=== PATIENT | male | born 1995 ===

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

== ENCOUNTER 2017-03-01 20:16 | Emergency (ER) | payer OTHER ==
[2017-03-01 20:22] VITALS: BP 153/86; PULSE 72; RESP 18; TEMP 98.5; O2SAT 100
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
== END 2017-03-01 23:40 | disposition home or self-care (01) ==
LOC: H.ER 20:16
DX: F31.9 Bipolar disorder, unspecified (principal); Z91.14 Patient's other noncompliance with medication regimen; F20.9 Schizophrenia, unspecified; F41.9 Anxiety disorder, unspecified

== ENCOUNTER 2017-04-30 02:35 | Observation (INO) | payer MEDICAID, OTHER ==
[2017-04-30 02:53] VITALS: BMI 33.3
[2017-04-30] MEDS ORDERED: Sodium Chloride 0.9% 1,000 ML IV STA ×2 (03:01→06:27)
[2017-04-30 03:50] LABS: BASO # 0.1 K/uL (0.0-0.2); BASO % 0.7 % (0.0-2.0); EOS # 0.2 K/uL (0.0-0.7); EOS % 1.9 % (0.0-4.0); HEMOGLOBIN 15.5 g/dL (12.0-18.0); LYMPH # 3.2 K/uL (1.0-4.3); LYMPH % 35.3 % (20.0-40.0); MEAN CELL VOLUME 80.6 fl (80.0-94.0); MEAN CORPUSCULAR HGB CONC 33.5 g/dL (33.0-37.0); MEAN PLATELET VOLUME 8.1 fl (7.2-11.7); MONO # 0.4 K/uL (0.0-0.8); MONO % 4.8 % (0.0-10.0); NEUT # 5.1 K/uL (1.8-7.0); NEUT % 57.3 % (50.0-75.0); NRBC % 0.1 % (0.0-0.0); RBC 5.73 Mil/uL (4.40-5.90); RED CELL DISTRIBUTION WIDTH 13.4 % (11.5-14.5); WHITE BLOOD COUNT 8.9 K/uL (4.8-10.8)
[2017-04-30 04:00] LABS: ALB/GLOB RATIO 1.2 (1.0-2.1); ALBUMIN 4.7 g/dL (3.5-5.0); ALT/SGPT 46 U/L (21-72); AST/SGOT 32 U/L (17-59); BLOOD UREA NITROGEN 12 mg/dl (9-20); CALCIUM 9.7 mg/dL (8.4-10.2); GFR AFRICAN-AMERICAN > 60; GFR NON-AFRICAN AMERICAN > 60
[2017-04-30 04:01] LABS: ACETAMINOPHEN < 10.0 ug/ml (10.0-30.0); SALICYLATE < 1.0 mg/dl
[2017-04-30 04:22] LABS: URINE BILIRUBIN NEGATIVE (NEGATIVE); URINE BLOOD NEGATIVE (NEGATIVE); URINE CLARITY SLIGHTY-CLOUDY (Clear); URINE COLOR YELLOW (YELLOW); URINE GLUCOSE (UA) NEG (Normal); URINE LEUKOCYTE ESTERASE NEG Leu/uL (Negative); URINE PROTEIN NEGATIVE (NEGATIVE); URINE UROBILINOGEN 0.2-1.0 mg/dL (0.2-1.0)
[2017-04-30 04:26] LABS: VENOUS BLOOD GAS BASE EXCESS -1.1 mmol/L (0.0-2.0); VENOUS BLOOD GAS PCO2 42 mmHg (40-60); VENOUS BLOOD GAS PO2 72 mm/Hg (30-55); VENOUS BLOOD PH 7.37 (7.32-7.43)
[2017-04-30 04:26] LABS: BARBITURATES, UR NEGATIVE (NEGATIVE); BENZODIAZEPINES, UR NEGATIVE (NEGATIVE); OPIATES, UR NEGATIVE (NEGATIVE); PHENCYCLIDINE, UR NEGATIVE (NEGATIVE)
--- NOTE | 2017-04-30 04:32 | ED PDOC ---
HPI: Psych/Substance Abuse Time Seen by Provider: 04/30/17 02:47 Chief Complaint (Nursing): Psychiatric Evaluation Chief Complaint (Provider): psychiatric evaluation History Per: Patient Onset/Duration Of Symptoms: Hrs (two hours prior to arrival ) Current Symptoms Are (Timing): Still Present Associated Symptoms: denies: Suicidal Thoughts Additional Complaint(s): 21 year old male with a past medical history of bipolar disorder presents for psychiatric evaluation. Patient took approximately 10 to 15 Depakote 500 mg pills two hours prior to arrival in order to "get high". Currently feels dizzy, nauseated, numb throughout his body, and has an headache. Denies suicidal or homicidal ideation, alcohol or drug use. PMD: Provider TBD Past Medical History Reviewed: Historical Data, Nursing Documentation, Vital Signs Vital Signs: Last Vital Signs Temp 98.7 F 04/30/17 02:53 Pulse 118 H 04/30/17 02:53 Resp 16 04/30/17 02:53 BP 142/90 04/30/17 02:53 Pulse Ox 100 04/30/17 02:53 - Medical History PMH: Anxiety, Bipolar Disorder, Depression, Schizophrenia Denies: Diabetes, Hepatitis, HIV, HTN, Chronic Kidney Disease, Seizures, Sexually Transmitted Disease - Family History Family History: States: Unknown Family Hx - Home Medications Home Medications: Ambulatory Orders Medication Instructions Recorded ARIPiprazole [Abilify] 5 mg PO DAILY #15 tab 03/01/17 Divalproex [Depakote DR] 500 mg PO BID 04/30/17 - Allergies Allergies/Adverse Reactions: Allergies Allergy/AdvReac Type Severity Reaction Status Date / Time No Known Allergies Allergy Verified 04/30/17 02:52 Review of Systems ROS Statement: Except As Marked, All Systems Reviewed And Found Negative Musculoskeletal: Positive for: Other (numb throughout the body) Neurological: Positive for: Headache, Dizziness, Other (nauseated) Psych: Negative for: Suicidal ideation (homicidal ideation) Physical Exam - Reviewed Nursing Documentation Reviewed: Yes Vital Signs Reviewed: Yes - Physical Exam Appears: Positive for: Well, Non-toxic, No Acute Distress Head Exam: Positive for: ATRAUMATIC, NORMAL INSPECTION, NORMOCEPHALIC Skin: Positive for: Normal Color, Warm, Dry Eye Exam: Positive for: EOMI, Normal appearance, PERRL ENT: Positive for: Normal ENT Inspection Neck: Positive for: Normal, Painless ROM, Supple. Negative for: Decreased ROM, Limited ROM Cardiovascular/Chest: Positive for: Regular Rate, Rhythm. Negative for: Murmur Respiratory: Positive for: Normal Breath Sounds. Negative for: Decreased Breath Sounds, Accessory Muscle Use, Respiratory Distress Gastrointestinal/Abdominal: Positive for: Normal Exam, Bowel Sounds, Soft. Negative for: Tenderness, Guarding, Rebound Back: Positive for: Normal Inspection. Negative for: L CVA Tenderness, R CVA Tenderness Extremity: Positive for: Normal ROM. Negative for: Tenderness, Pedal Edema, Deformity Neurologic/Psych: Positive for: Alert, civil structural engineer II-XII, Oriented (x3), Cerebellar Tests (normal), Gait (normal). Negative for: Motor/Sensory Deficits, Aphasia - Laboratory Results Result Diagrams: 04/30/17 03:47 04/30/17 03:47 - ECG O2 Sat by Pulse Oximetry: 100 (RA) Pulse Ox Interpretation: Normal Medical Decision Making Medical Decision Making: Time: 02:56 Impression: History of bipolar disorder presents to ED with drug overdose A/P: Questionable if patient is suicidal or not and patient is placed on 1:1 observation --VBG Shock Panel --EKG --Acetaminophen Stat --Alcohol Serum --CMP --Drug Screen --Salicylate --Valproic Acid --CBC w/ differential --Motrin 600 mg --Normal Saline 1,000 mls/hr --Zofran Inj 4 mg --1:1 Observation --Urinalysis --Reevaluation 0600 Spoke with Poison control who recommends observation for seizure activity, [employer] depression, encephalopathy, thrombocytopenia, recommends observation for 12-24 hours. Patient improving, states he's starting to feel better. Spoke with Hospitalist who is aware of patient in case of decompensation on Tele unit. Dr. Corbin aware of patient and agrees to admission. Scribe Attestation: Documented by Mathieu Davila, acting as a scribe for Damian Wilkins MD Provider Scribe Attestation: All medical record entries made by the Scribe were at my direction and personally dictated by me. I have reviewed the chart and agree that the record accurately reflects my personal performance of the history, physical exam, medical decision making, and the department course for this patient. I have also personally directed, reviewed, and agree with the discharge instructions and disposition. Disposition - Clinical Impression Clinical Impression: Bipolar disorder, Valproic acid toxicity - Disposition Disposition Time: 05:00 Condition: SERIOUS Forms: [employer] ([place])
[2017-04-30 05:28] LABS: VALPROIC ACID 322.9 ug/mL (50.0-100.0)
--- NOTE | 2017-04-30 11:57 | CARD ---
APPROVED REPORT EKG Measurement Heart [id number] <Conclusion> Sinus tachycardia Otherwise normal ECG
--- NOTE | 2017-04-30 12:00 | CARD ---
APPROVED REPORT EKG Measurement Heart [id number] <Conclusion> Sinus bradycardia Otherwise normal ECG
--- NOTE | 2017-04-30 14:28 | CP.PCM.CON ---
History of Present Illness - History of Present Illness History of Present Illness: consult requested for overdose on depakote pt is a 21 years old male with previous diagnosis of polysubstance use and bipolar disorder, pt non ccompliant with medication or follow up, as per pt he has been using cannabis daily and alcohol occasionally, pt reported he has been depressed and bored, as per mother pt has been aggressive and threatening towards family constantly requesting money on day of evaluation he requested money from mother when she refused , he overdosed on depakote pt on evaluation reported depressed mood, guarded , minimizing the suicidal attempt reported using depakote to get high Past Patient History - Past Medical History & Family History Past Medical History?: Yes - Past Social History Smoking Status: Light Smoker < 10 Cigarettes Daily - CARDIAC Hx Cardiac Disorders: No - PULMONARY Hx Respiratory Disorders: No - NEUROLOGICAL Hx Neurological Disorder: No - HEENT Hx HEENT Problems: Yes Other/Comment: wears eye glasses - RENAL Hx Chronic Kidney Disease: No - ENDOCRINE/METABOLIC Hx Endocrine Disorders: No - HEMATOLOGICAL/ONCOLOGICAL Hx Blood Disorders: No - INTEGUMENTARY Hx Dermatological Problems: No - MUSCULOSKELETAL/RHEUMATOLOGICAL Hx Musculoskeletal Disorders: No Hx Falls: No - GASTROINTESTINAL Hx Gastrointestinal Disorders: No - GENITOURINARY/GYNECOLOGICAL Hx Genitourinary Disorders: No Hx Sexually Transmitted Disorders: No - PSYCHIATRIC Hx Psychophysiologic Disorder: Yes Hx Bipolar Disorder: Yes Hx Depression: Yes Hx Schizophrenia: Yes Hx Substance Use: Yes (pt denies but + for Cannabinoids) - SURGICAL HISTORY Hx Surgeries: No - ANESTHESIA Hx Anesthesia: No Hx Anesthesia Reactions: (unknown) Meds Allergies/Adverse Reactions: Allergies Allergy/AdvReac Type Severity Reaction Status Date / Time No Known Allergies Allergy Verified 04/30/17 02:52 Physical Exam - Psychiatric Exam Additional comments: pt seen in bed, , partial eye contact, guarded speech underproductive reported depressed mood, constricted affect, thought form circumstantial , denied perceptual disturbances non elicited denied any current suicidal or homicidal ideations, AAOX3 limited insight into illness Results - Vital Signs Recent Vital Signs: Last Vital Signs Temp 97.5 F L 04/30/17 12:00 Pulse 54 L 04/30/17 12:00 Resp 18 04/30/17 12:00 BP 100/51 L 04/30/17 12:00 Pulse Ox 100 04/30/17 12:00 - Labs Result Diagrams: 04/30/17 03:47 04/30/17 03:47 Labs: Laboratory Results - last 24 hr 04/30/17 04/30/17 04/30/17 03:47 03:47 03:47 WBC 8.9 RBC 5.73 Hgb 15.5 Hct 46.2 MCV 80.6 MCH 27.0 MCHC 33.5 RDW 13.4 Plt Count 289 MPV 8.1 Neut % (Auto) 57.3 Lymph % (Auto) 35.3 [place] % (Auto) 4.8 Eos % (Auto) 1.9 Baso % (Auto) 0.7 Neut # (Auto) 5.1 Lymph # (Auto) 3.2 [place] # (Auto) 0.4 Eos # (Auto) 0.2 Baso # (Auto) 0.1 pO2 VBG pH VBG pCO2 VBG HCO3 VBG Total CO2 VBG O2 Sat (Calc) VBG Base Excess VBG Potassium Glucose Lactate FiO2 Sodium 145 Potassium 4.1 Chloride 101 Carbon Dioxide 24 Anion Gap 24 H BUN 12 Creatinine 1.1 Est GFR ( Amer) > 60 Est GFR (Non-Af Amer) > 60 Random Glucose 76 Calcium 9.7 Total Bilirubin 0.5 AST 32 ALT 46 Alkaline Phosphatase 83 Ammonia Troponin I Total Protein 8.5 H Albumin 4.7 Globulin 3.8 Albumin/Globulin Ratio 1.2 Venous Blood Potassium Urine Color Urine Clarity Urine pH Ur Specific [place] Urine Protein Urine Glucose (UA) Urine Ketones Urine Blood Urine Nitrate Urine Bilirubin Urine Urobilinogen Ur Leukocyte Esterase Urine RBC (Auto) Urine Microscopic WBC Salicylates < 1.0 Urine Opiates Screen Urine Methadone Screen Acetaminophen < 10.0 L Ur Barbiturates Screen Valproic Acid 322.9 H* Ur Phencyclidine Scrn Ur Amphetamines Screen U Benzodiazepines Scrn U Oth Cocaine Metabols U Cannabinoids Screen Alcohol, Quantitative < 10 04/30/17 04/30/17 04/30/17 04:03 04:03 04:22 WBC RBC Hgb Hct MCV MCH MCHC RDW Plt Count MPV Neut % (Auto) Lymph % (Auto) [place] % (Auto) Eos % (Auto) Baso % (Auto) Neut # (Auto) Lymph # (Auto) [place] # (Auto) Eos # (Auto) Baso # (Auto) pO2 72 H VBG pH 7.37 VBG pCO2 42 VBG HCO3 24.0 VBG Total CO2 25.6 VBG O2 Sat (Calc) 98.5 H VBG Base Excess -1.1 L VBG Potassium 4.0 Glucose 73 L Lactate 2.1 FiO2 21.0 Sodium 138.0 Potassium Chloride 107.0 Carbon Dioxide Anion Gap BUN Creatinine Est GFR ( Amer) Est GFR (Non-Af Amer) Random Glucose Calcium Total Bilirubin AST ALT Alkaline Phosphatase Ammonia Troponin I Total Protein Albumin Globulin Albumin/Globulin Ratio Venous Blood Potassium 4.0 Urine Color Yellow Urine Clarity Slighty-cloudy Urine pH 6.0 Ur Specific [place] 1.012 Urine Protein Negative Urine Glucose (UA) Neg Urine Ketones Negative Urine Blood Negative Urine Nitrate Negative Urine Bilirubin Negative Urine Urobilinogen 0.2-1.0 Ur Leukocyte Esterase Neg Urine RBC (Auto) 3 Urine Microscopic WBC < 1 Salicylates Urine Opiates Screen Negative Urine Methadone Screen Negative Acetaminophen Ur Barbiturates Screen Negative Valproic Acid Ur Phencyclidine Scrn Negative Ur Amphetamines Screen Negative U Benzodiazepines Scrn Negative U Oth Cocaine Metabols Negative U Cannabinoids Screen Positive H Alcohol, Quantitative 04/30/17 04/30/17 04/30/17 06:04 12:03 12:03 WBC RBC Hgb Hct MCV MCH MCHC RDW Plt Count MPV Neut % (Auto) Lymph % (Auto) [place] % (Auto) Eos % (Auto) Baso % (Auto) Neut # (Auto) Lymph # (Auto) [place] # (Auto) Eos # (Auto) Baso # (Auto) pO2 VBG pH VBG pCO2 VBG HCO3 VBG Total CO2 VBG O2 Sat (Calc) VBG Base Excess VBG Potassium Glucose Lactate FiO2 Sodium Potassium Chloride Carbon Dioxide Anion Gap BUN Creatinine Est GFR ( Amer) Est GFR (Non-Af Amer) Random Glucose Calcium Total Bilirubin AST ALT Alkaline Phosphatase Ammonia 36 Troponin I < 0.0120 Total Protein Albumin Globulin Albumin/Globulin Ratio Venous Blood Potassium Urine Color Urine Clarity Urine pH Ur Specific [place] Urine Protein Urine Glucose (UA) Urine Ketones Urine Blood Urine Nitrate Urine Bilirubin Urine Urobilinogen Ur Leukocyte Esterase Urine RBC (Auto) Urine Microscopic WBC Salicylates Urine Opiates Screen Urine Methadone Screen Acetaminophen Ur Barbiturates Screen Valproic Acid 67.0 Ur Phencyclidine Scrn Ur Amphetamines Screen U Benzodiazepines Scrn U Oth Cocaine Metabols U Cannabinoids Screen Alcohol, Quantitative Assessment & Plan - Assessment and Plan (Free Text) Assessment: bipolar disorder depressed cannabis use disorder Plan: pt with limited insight into illness pt at current mental status continues to be danger to self, requires admission to psychiatry for further stabilization pt agreed to sign voluntary to psychiatry department for further stabilization upon medical clearence
--- NOTE | 2017-04-30 15:29 | CP.PCM.HP ---
History of Present Illness - History of Present Illness History of Present Illness: CC: Overdose of Depakote. 21 y/o, M, Hx of Bipolar Disorder, brought by EMS to [facility] to be evaluated for Depakote Overdose, onset 2 hrs [facility], with no relief. Pt came to ER c/o of been taking from 10 to 15 pills of Depakote, episode of intoxication associated with depression. As per mother, he was asking for money and when she refused, he start with aggressive behavior with the family, there after, he took an excessive amount of the pills. Pt MIK hong SI. Worsening symptoms: Headache, continue, moderate intensity 7:1Dizziness, nausea , generalized feeling of numbness. Aggravated factor: Non in compliance with medications. Pt denied: Fever, chills, CP, SOB, abdominal pain, vomiting, diarrhea, urinary symptoms, sick contact, recent travel out of [facility]. 1st EKG: Sinus Bradycardia (HR 54) 2nd EKG: Sinus Tachycardia (HR 118). Present on Admission - Present on Admission Any Indicators Present on Admission: No Review of Systems - Constitutional Constitutional: Headache - EENT Eyes: Requires Corrective Lenses Ears: Other (negative) Nose/Mouth/Throat: Other (negative) - Cardiovascular Cardiovascular: Other (negative) - Respiratory Respiratory: Other (negative) - Gastrointestinal Gastrointestinal: Nausea - Genitourinary Genitourinary: Other (negative) - Musculoskeletal Musculoskeletal: Other (negative) - Integumentary Integumentary: Other (negative) - Neurological Neurological: Dizziness, Headaches, Other (feeling of generalized numbness.) - Psychiatric Psychiatric: Anxiety, Behavioral Changes (2nd to intoxication.), Depression - Endocrine Endocrine: Other (negative) - Hematologic/Lymphatic Hematologic: Other (negative) Past Patient History - Past Medical History & Family History Past Medical History?: Yes Pertinent Family History: Unknown - Past Social History Smoking Status: Light Smoker < 10 Cigarettes Daily Alcohol: Occasional Drugs: Cannabis Home Situation {Lives}: With Family - CARDIAC Hx Cardiac Disorders: No - PULMONARY Hx Respiratory Disorders: No - NEUROLOGICAL Hx Neurological Disorder: No - HEENT Hx HEENT Problems: Yes Other/Comment: wears eye glasses - RENAL Hx Chronic Kidney Disease: No - ENDOCRINE/METABOLIC Hx Endocrine Disorders: No - HEMATOLOGICAL/ONCOLOGICAL Hx Blood Disorders: No - INTEGUMENTARY Hx Dermatological Problems: No - MUSCULOSKELETAL/RHEUMATOLOGICAL Hx Musculoskeletal Disorders: No Hx Falls: No - GASTROINTESTINAL Hx Gastrointestinal Disorders: No - GENITOURINARY/GYNECOLOGICAL Hx Genitourinary Disorders: No Hx Sexually Transmitted Disorders: No - PSYCHIATRIC Hx Psychophysiologic Disorder: Yes Hx Bipolar Disorder: Yes Hx Depression: Yes Hx Schizophrenia: Yes Hx Substance Use: Yes (pt denies but + for Cannabinoids) - SURGICAL HISTORY Hx Surgeries: No - ANESTHESIA Hx Anesthesia: No Hx Anesthesia Reactions: (unknown) Meds Allergies/Adverse Reactions: Allergies Allergy/AdvReac Type Severity Reaction Status Date / Time No Known Allergies Allergy Verified 04/30/17 02:52 Physical Exam - Constitutional Appears: No Acute Distress - Head Exam Head Exam: NORMAL INSPECTION - Eye Exam Eye Exam: PERRL - ENT Exam ENT Exam: Normal Exam - Neck Exam Neck exam: Positive for: Normal Inspection - Respiratory Exam Respiratory Exam: NORMAL BREATHING PATTERN - Cardiovascular Exam Cardiovascular Exam: REGULAR RHYTHM - GI/Abdominal Exam GI & Abdominal Exam: Normal Bowel Sounds, Soft - Extremities Exam Extremities exam: Positive for: normal inspection - Back Exam Back exam: NORMAL INSPECTION - Neurological Exam Neurological exam: Alert, Oriented x3 Additional comments: Speech clear, follows commands - Psychiatric Exam Psychiatric exam: Depressed - Skin Skin Exam: Warm Results - Vital Signs Recent Vital Signs: Last Vital Signs Temp 97.5 F L 04/30/17 12:00 Pulse 54 L 04/30/17 12:00 Resp 18 04/30/17 12:00 BP 100/51 L 04/30/17 12:00 Pulse Ox 100 04/30/17 12:00 reviewed Gideon - Labs Result Diagrams: 04/30/17 03:47 04/30/17 03:47 Labs: Laboratory Results - last 24 hr 04/30/17 04/30/17 04/30/17 03:47 03:47 03:47 WBC 8.9 RBC 5.73 Hgb 15.5 Hct 46.2 MCV 80.6 MCH 27.0 MCHC 33.5 RDW 13.4 Plt Count 289 MPV 8.1 Neut % (Auto) 57.3 Lymph % (Auto) 35.3 [place] % (Auto) 4.8 Eos % (Auto) 1.9 Baso % (Auto) 0.7 Neut # (Auto) 5.1 Lymph # (Auto) 3.2 [place] # (Auto) 0.4 Eos # (Auto) 0.2 Baso # (Auto) 0.1 pO2 VBG pH VBG pCO2 VBG HCO3 VBG Total CO2 VBG O2 Sat (Calc) VBG Base Excess VBG Potassium Glucose Lactate FiO2 Sodium 145 Potassium 4.1 Chloride 101 Carbon Dioxide 24 Anion Gap 24 H BUN 12 Creatinine 1.1 Est GFR ( Amer) > 60 Est GFR (Non-Af Amer) > 60 Random Glucose 76 Calcium 9.7 Total Bilirubin 0.5 AST 32 ALT 46 Alkaline Phosphatase 83 Ammonia Troponin I Total Protein 8.5 H Albumin 4.7 Globulin 3.8 Albumin/Globulin Ratio 1.2 Venous Blood Potassium Urine Color Urine Clarity Urine pH Ur Specific [place] Urine Protein Urine Glucose (UA) Urine Ketones Urine Blood Urine Nitrate Urine Bilirubin Urine Urobilinogen Ur Leukocyte Esterase Urine RBC (Auto) Urine Microscopic WBC Salicylates < 1.0 Urine Opiates Screen Urine Methadone Screen Acetaminophen < 10.0 L Ur Barbiturates Screen Valproic Acid 322.9 H* Ur Phencyclidine Scrn Ur Amphetamines Screen U Benzodiazepines Scrn U Oth Cocaine Metabols U Cannabinoids Screen Alcohol, Quantitative < 10 04/30/17 04/30/17 04/30/17 04:03 04:03 04:22 WBC RBC Hgb Hct MCV MCH MCHC RDW Plt Count MPV Neut % (Auto) Lymph % (Auto) [place] % (Auto) Eos % (Auto) Baso % (Auto) Neut # (Auto) Lymph # (Auto) [place] # (Auto) Eos # (Auto) Baso # (Auto) pO2 72 H VBG pH 7.37 VBG pCO2 42 VBG HCO3 24.0 VBG Total CO2 25.6 VBG O2 Sat (Calc) 98.5 H VBG Base Excess -1.1 L VBG Potassium 4.0 Glucose 73 L Lactate 2.1 FiO2 21.0 Sodium 138.0 Potassium Chloride 107.0 Carbon Dioxide Anion Gap BUN Creatinine Est GFR ( Amer) Est GFR (Non-Af Amer) Random Glucose Calcium Total Bilirubin AST ALT Alkaline Phosphatase Ammonia Troponin I Total Protein Albumin Globulin Albumin/Globulin Ratio Venous Blood Potassium 4.0 Urine Color Yellow Urine Clarity Slighty-cloudy Urine pH 6.0 Ur Specific [place] 1.012 Urine Protein Negative Urine Glucose (UA) Neg Urine Ketones Negative Urine Blood Negative Urine Nitrate Negative Urine Bilirubin Negative Urine Urobilinogen 0.2-1.0 Ur Leukocyte Esterase Neg Urine RBC (Auto) 3 Urine Microscopic WBC < 1 Salicylates Urine Opiates Screen Negative Urine Methadone Screen Negative Acetaminophen Ur Barbiturates Screen Negative Valproic Acid Ur Phencyclidine Scrn Negative Ur Amphetamines Screen Negative U Benzodiazepines Scrn Negative U Oth Cocaine Metabols Negative U Cannabinoids Screen Positive H Alcohol, Quantitative 04/30/17 04/30/17 04/30/17 06:04 12:03 12:03 WBC RBC Hgb Hct MCV MCH MCHC RDW Plt Count MPV Neut % (Auto) Lymph % (Auto) [place] % (Auto) Eos % (Auto) Baso % (Auto) Neut # (Auto) Lymph # (Auto) [place] # (Auto) Eos # (Auto) Baso # (Auto) pO2 VBG pH VBG pCO2 VBG HCO3 VBG Total CO2 VBG O2 Sat (Calc) VBG Base Excess VBG Potassium Glucose Lactate FiO2 Sodium Potassium Chloride Carbon Dioxide Anion Gap BUN Creatinine Est GFR ( Amer) Est GFR (Non-Af Amer) Random Glucose Calcium Total Bilirubin AST ALT Alkaline Phosphatase Ammonia 36 Troponin I < 0.0120 Total Protein Albumin Globulin Albumin/Globulin Ratio Venous Blood Potassium Urine Color Urine Clarity Urine pH Ur Specific [place] Urine Protein Urine Glucose (UA) Urine Ketones Urine Blood Urine Nitrate Urine Bilirubin Urine Urobilinogen Ur Leukocyte Esterase Urine RBC (Auto) Urine Microscopic WBC Salicylates Urine Opiates Screen Urine Methadone Screen Acetaminophen Ur Barbiturates Screen Valproic Acid 67.0 Ur Phencyclidine Scrn Ur Amphetamines Screen U Benzodiazepines Scrn U Oth Cocaine Metabols U Cannabinoids Screen Alcohol, Quantitative reviewed J.P. - EKG Data EKG comments: reviewed J.P. Assessment & Plan (1) Bipolar disorder Status: Acute Priority: High (2) Valproic acid toxicity Status: Acute Priority: High (3) Depression Status: Acute Priority: High - Assessment and Plan (Free Text) Plan: Pt was seen by Psychiatrist configuration management consultant and agree to sign for voluntary to Psychiatric Unit upon medically stable, Pt condition improved and can be transferred to 3rd floor. Psychiatric consult appreciated. - Date & Time Date: 04/30/17 Time: 13:00
[2017-04-30 16:22] VITALS: RESP 20
[2017-04-30 20:17] VITALS: BP 135/75; PULSE 65; TEMP 98.9; O2SAT 97
== END 2017-04-30 22:30 ==
LOC: H.ER 02:35 → H.ERHOLD 05:04 → H.TEL 08:59
PROVIDERS: ADMIT Internal Medicine Pulmonary Disease; ATTEND Internal Medicine Pulmonary Disease
DX: T42.6X2A Poisoning by other antiepileptic and sedative-hypnotic drugs, intentional self-harm, initial encounter (principal); Y92.9 Unspecified place or not applicable; Z79.899 Other long term (current) drug therapy; Z87.891 Personal history of nicotine dependence; F41.9 Anxiety disorder, unspecified; F45.9 Somatoform disorder, unspecified; R00.0 Tachycardia, unspecified; R00.1 Bradycardia, unspecified; F12.90 Cannabis use, unspecified, uncomplicated; F20.9 Schizophrenia, unspecified; F31.9 Bipolar disorder, unspecified; Z91.14 Patient's other noncompliance with medication regimen
CPT/HCPCS: 80053; 80164; 80320; 80324; 80329; 80345; 80346; 80349; 80353; 80358; 80361; 81003; 82140; 82803; 83992; 84484; 85025; 93005; 96361; 96374; 99285; G0378; J2405; J7040

== ENCOUNTER 2017-04-30 15:52 | Inpatient (IN) | payer MEDICAID ==
[2017-04-30 22:40] VITALS: BMI 33.4
[2017-04-30] MEDS ORDERED: Alum-Mag Hydrox-Simethicone Susp (30 mL) PO PRN (23:00)
[2017-04-30] MEDS ORDERED: Magnesium Hydroxide Susp 30 ml UD PO PRN (23:00)
[2017-04-30] MEDS ORDERED: DiphenhydrAMINE 50 mg/ml Inj IM PRN (23:00)
--- NOTE | 2017-04-30 23:39 | PCM.BM ---
<Matt Blackmon - Last Filed: 04/30/17 23:37> Treatment Plan Problems - Problems identified on initial assessmt aletered sleep pattern Date Initiated: 04/30/17 (n) Time Initiated: 23:38 Assessment reference: NA Status: Active Hopelessness Date Initiated: 04/30/17 Time Initiated: 23:38 Assessment reference: NA medication non-adherence Date Initiated: 04/30/17 Time Initiated: 23:39 Assessment reference: NA Treatment assets and liabiliti Patient Assests: cooperative, self-reliant, ADL independent, physically healthy , good support system, negotiates basic needs Patient Liabilities: financial problems, substance abuse - Milieu Protocol Maintain good personal hygiene: daily Encourage regular showers, daily Remind patient to perform daily oral care, daily Assist patient to perform ADL's Maintain personal safety: every shift Educate patient to report safety concerns to staff, every shift Monitor environment for contraband/sharps Medication safety: Monitor for expected outcome, potential side effects: every shift, Assess barriers to learning: every shift, Assess readiness for medication education: every shift Family Contact Family contact: Patient agrees to contact <Ramesh Murillo - Last Filed: 05/02/17 13:13> Family Contact Family involvement: Family/SO is involved Family contact: Patient agrees to contact, Family has been contacted by patient , Telephone contact initiated by staff Family contact name: Leticia Vernon (Mother) [phone] Family contacted how many times per week?: 4 Family contact comment: Business Intelligence Engineer met with pt's mother who reported that pt can be very volitile and has been violent toward property in the home when he does not get his way. pt's mother says that pt does not follow-up with services because he does not want to go. Leticia reported that pt is unmotivated and stays at home in his room all day. She is not concerned with his drug usage at this time. Leticia reported pt began attending college, that she was paying for, for 2 months and then stopped attending. Leticia would like pt to begin therapy to help him make a plan for him life and gain direction, motivation and coping skills. <Fany Arana - Last Filed: 05/03/17 15:05> Family Contact - Goals for Treatment Patient goals for treatment: Patient to continue stabilization on 3NP through medication management and group/supportive therapy. Patient to be encouraged to attend groups regularly to promote self-awareness, sobriety, and improve insight , coping skills and self-esteem. Patient to be provided with referral for appropriate level of aftercare to reduce risk of future hospitalizations and ensure safety in the community. Discharge/Continuing Care - Education Needs Education Needs: Patient Medication, Patient Coping Skills, Patient Anger Management skills, Patient Community resources, Patient Aftercare Safety Plan - Discharge Discharge Criteria: Tolerates medication w/o severe side effects, Free of Suicidal thoughts, Free of agitation, Normal sleep pattern, Ability to care for self, No longer exhibiting s/s of withdrawal, Reduction of target symptoms Discharge to:: Home, With Family - Treatment Team Participation Patient/Family/SO Statement: 05/03/17 15:05 Patient attended tx team this morning to discuss progress on 3NP and discharge planning. Patient presents as depressed and withdrawn. Pt. continues to deny overdose leading to admission as a suicide attempt, stating It was to get high . Pt. also reports overdose was an impulsive reaction to mother refusing to give patient money. Pt. reported non-adherence with medication management [place] [facility] (Dep[place]). Medication changes discussed at length. Pt. agreeable to Abilify. Psychoeducation regarding importance of compliance with aftercare and risks of continued marijuana abuse provided. Pt. receptive and expressed being motivated for tx. Discussed with Family/SO: No Was Patient/Family/SO present at Treatment Team Meeting: Yes <Mayco Miller - Last Filed: 05/05/17 10:56> - Diagnosis (1) Bipolar disorder Status: Acute Interventions: psychotherapy, pharmacotherapy 05/05/17 09:02
--- NOTE | 2017-05-01 08:22 | PCM.PSYCH ---
Initial Psychiatric Evaluation - Initial Psychiatric Evaluation Type of Admission: Voluntary Chief Complaint (in patient's own words): i overdosed Patient's Reaction to Hospitalization: i wanted to get high on depakote History of Present Illness and Precipitating Events: This is a 21 year old male with h/o bipolar disorder and with 2 previous admissions to [facility] and last one last year and has been noncompliant with meds admitted as a transfer from as pt overdosed on 11-29 depakote in a possible suicidal attempt.pt lives with mother and claims that he took pills to get high and has not seen psychiatrist for past year. pt says that he feels lonely and pt has few friends Current Medications: Active Medications Generic Name Dose Route Start Last Admin Trade Name Freq PRN Reason Stop Dose Admin Acetaminophen 650 mg 04/30/17 23:00 Tylenol 325mg Tab PO Q4 PRN T>101;Pain 1-7;headache Al Hydrox/Mg Hydrox/Simethicone 30 ml 04/30/17 23:00 Maalox Plus 30 Ml PO Q4 PRN Dyspepsia Diphenhydramine HCl 50 mg 04/30/17 23:00 Benadryl PO Q6 PRN Extrapyramidal Symptoms Diphenhydramine HCl 50 mg 04/30/17 23:00 Benadryl IM Q6 PRN Extrapyramidal S/S Unable PO Diphenhydramine HCl 50 mg 04/30/17 23:10 04/30/17 23:35 Benadryl PO 50 mg HS PRN Administration Sleep Haloperidol 5 mg 04/30/17 23:00 Haldol PO Q4 PRN Agitation Haloperidol Lactate 5 mg 04/30/17 23:00 Haldol IM Q4 PRN Agitation, Unable to Take PO Lorazepam 2 mg 04/30/17 23:00 Ativan IM Q4 PRN Anxiety/Agitation,Unable PO Lorazepam 2 mg 04/30/17 23:00 Ativan PO Q4 PRN Anxiety/Agitation Magnesium Hydroxide 30 ml 04/30/17 23:00 Milk Of Magnesia PO HS PRN Constipation Past Psychiatric History - Past Psychiatric History At [facility]: [facility] Nature of Treatment: for depression History of Abuse: denies History of ETOH/Drug Use: pt abuses cannabis daily. History of Family Illness: not known Pertinent Medical Hx (Current Medical&Sleep Prob, Allergies): Allergies Allergy/AdvReac Type Severity Reaction Status Date / Time No Known Allergies Allergy Verified 04/30/17 02:52 ARIPiprazole [Abilify] 5 mg PO DAILY #15 tab 03/01/17 Divalproex [Depakote DR] 500 mg PO BID 04/30/17 Review of Systems - Review of Systems All systems: reviewed and no additional remarkable complaints except Mental Status Examination - Personal Presentation Personal Presentation: Looks stated age - Affect Affect: Constricted - Motor Activity Motor Activity: Calm - Reliability in Providing Information Reliability in Providing Information: Fair - Speech Speech: Relevant - Mood Mood: Depressed - Formal Thought Process Formal Thought Process: Paranoia - Obsessions/Compulsions Obsessions: No Compulsions: No - Cognitive Functions Orientation: Person, Place, Situation Sensorium: Alert Attention/Concentration: Easily distracted Abstract Thinking: As evidence by literal perception of proverbs Estimate of Intelligence: Average Memory: Remote intact, as evidenced by: Ability to recall historical events - Risk Risk: Diminished functioning - Strength & Assets Inventory Strength & Assets Inventory: Family support DSM 5 DX - DSM 5 DSM 5 Diagnosis: bipolar disorder,mixed type without psychosis - Recommended/Plan of Treatment Treatment Recommendations and Plan of Treatment: plan is to start pt on abilify 5 mg daily and check Valproic acid level in am and restart depakote based on the level. Will engage pt in groups and therapy Medical consult .
[2017-05-01 10:38] LABS: T4 4.3 ug/dl (5.5-11.0)
[2017-05-01 10:51] LABS: T3 0.814 nmol/L (1.49-2.60)
--- NOTE | 2017-05-02 16:02 | PCM.PYCHPN ---
Psychiatric Progress Note - Psychiatric Progress Note Patient Chief Complaint: pt has remained very labile and irritible with poor impulse control and need further stabilization.VPA level is 10 and low Medication Change: Yes Medical Record Reviewed: Yes Mental Status Examination - Cognitive Function Memory: Intact Attention: Poor Concentration: Poor - Mood Mood: Anxious - Affect Affect: Constricted Goal/Treatment Plan - Goal/Treatment Plan Progress Toward Problem(s) and Goals/Treatment Plan: plan is to start pt on abilify 5 mg daily and check Valproic acid level in am and restart depakote based on the level. will start depakote 500 mg bid today.
[2017-05-02] MEDS: Divalproex 500 mg DR(BID formulation) PO SCH (18:06)
[2017-05-03] MEDS: Divalproex 500 mg DR(BID formulation) PO SCH (08:34)
--- NOTE | 2017-05-03 16:03 | PCM.PYCHPN ---
Psychiatric Progress Note - Psychiatric Progress Note Patient seen today, length of contact: pt evaluated discussed with team chart reviewed Patient Chief Complaint: I do not want to take depakote, it makes my hair fall Problems Identified/Issues Discussed: pt evaluated with treatment team, guarded, underproductive speech , limited insight into illness , initially denied suicidal attempt also guarded in reference to information regarding substance use discussed with pt lack of previous compliance with medications pt stated side effects of depakote with hair falling, agreed to be started on abilify with possible change to depot injection to ensure compliance, pt agreed pt denied any current suicidal or homicidal ideations, attending groups, agreed to join partial program on discharge DSM 5 Symptoms Update: cannabis use disorder bipoalr disorder mixed Medication Change: Yes (increase abilify d/c depakote) Medical Record Reviewed: Yes Mental Status Examination - Cognitive Function Orientation: Person, Place, Situation Memory: Intact Attention: WNL Concentration: WNL Association: WNL Fund of Knowledge: WNL Decription of patient's judgement and insights: poor insight and judgement - Mood Mood: Depressed, Anxious - Affect Affect: Constricted - Speech Speech: Appropriate - Formal Thought Process Formal Thought Process: Paranoia, Circumstantial Psychotic Thoughts and Behaviors: pt denied perceptual disturbances, non elicited - Suicidal Ideation Suicidal Ideation: No - Homicidal Ideation Homicidal Ideation: No Goal/Treatment Plan - Goal/Treatment Plan Need for Continued Stay: Severe depression anxiety, Discharge may exacerbated symptoms Progress Toward Problem(s) and Goals/Treatment Plan: abilify 5mg bid neurontin 100mg tid group and supportive therapy referral to outpatient [facility] on discharge Estimated Date of D/C: 05/07/17
--- NOTE | 2017-05-04 16:19 | PCM.PYCHPN ---
Psychiatric Progress Note - Psychiatric Progress Note Patient seen today, length of contact: pt evaluated discussed with team chart reviewed Patient Chief Complaint: I am feeling better with the abilify Problems Identified/Issues Discussed: pt evaluated , calmer, reported better mood, affect less labile , pt more cooperative with treatment, agreed to be started on abilify maintenna pt attending groups, compliant with treatment denied any current side effects of medications pt denied any current suicidal or homicidal ideations, attending groups, agreed to join partial program on discharge DSM 5 Symptoms Update: bipolar disorder mixed cannabis use disorder Medication Change: No Medical Record Reviewed: Yes Mental Status Examination - Cognitive Function Orientation: Person, Place, Situation Memory: Intact Attention: WNL Concentration: WNL Association: WNL Fund of Knowledge: [facility] Decription of patient's judgement and insights: poor insight and judgement - Mood Mood: Depressed, Anxious - Affect Affect: Constricted - Speech Speech: Appropriate - Formal Thought Process Formal Thought Process: Paranoia, Circumstantial Psychotic Thoughts and Behaviors: pt denied perceptual disturbances, non elicited - Suicidal Ideation Suicidal Ideation: No - Homicidal Ideation Homicidal Ideation: No Goal/Treatment Plan - Goal/Treatment Plan Need for Continued Stay: Severe depression anxiety, Discharge may exacerbated symptoms Progress Toward Problem(s) and Goals/Treatment Plan: abilify 5mg bid, start abilify maintenna tomorrow neurontin 100mg tid group and supportive therapy referral to outpatient [facility] on discharge Estimated Date of D/C: 05/07/17
--- NOTE | 2017-05-05 11:57 | PCM.PYCHPN ---
Psychiatric Progress Note - Psychiatric Progress Note Patient seen today, length of contact: pt evaluated discussed with team chart reviewed Patient Chief Complaint: I am alright today Problems Identified/Issues Discussed: pt evaluated , calmer, interacting well with staff and other peers ,reported better mood, affect less labile , pt attending groups, compliant with treatment denied any current side effects of medications, awaiting insurance authorization to start abilify maintenna pt denied any current suicidal or homicidal ideations, attending groups, agreed to join partial program on discharge DSM 5 Symptoms Update: bipolar disorder, cannabis use disorder Medication Change: No Medical Record Reviewed: Yes Mental Status Examination - Cognitive Function Orientation: Person, Place, Situation Memory: Intact Attention: WNL Concentration: WNL Association: WNL Fund of Knowledge: [facility] Decription of patient's judgement and insights: poor insight and judgement - Mood Mood: Depressed, Anxious - Affect Affect: Constricted - Speech Speech: Appropriate - Formal Thought Process Formal Thought Process: Circumstantial Psychotic Thoughts and Behaviors: pt denied perceptual disturbances, non elicited - Suicidal Ideation Suicidal Ideation: No - Homicidal Ideation Homicidal Ideation: No Goal/Treatment Plan - Goal/Treatment Plan Need for Continued Stay: Severe depression anxiety, Discharge may exacerbated symptoms Progress Toward Problem(s) and Goals/Treatment Plan: abilify 5mg bid, start abilify maintenna for better complianceneurontin 100mg tid group and supportive therapy referral to outpatient [facility] on discharge Estimated Date of D/C: 05/07/17
[2017-05-06 09:18] VITALS: BP 115/51; PULSE 72; RESP 18; TEMP 98.1
--- NOTE | 2017-05-06 10:55 | PCM.PYCHDC ---
Mental Status Examination - Mental Status Examination Orientation: Person, Place, Situation Memory: Intact Mood: Neutral Affect: Broad Speech: Appropriate Attention: WNL Concentration: WNL Association: WNL Fund of Knowledge: WNL Formal Thought Process: No Impairment Description of patient's judgement and insight: partial insight and fair judgement Psychotic Thoughts and Behaviors: pt denied perceptual disturbances, non elicited Suicidal Ideation: No Current Homicidal Ideation?: No Discharge Summary - Discharge Note Reason for Hospitalization: pt is a 21 years old male with previous diagnosis of polysubstance use and bipolar disorder, pt non ccompliant with medication or follow up, as per pt he has been using cannabis daily and alcohol occasionally, pt reported he has been depressed and bored, as per mother pt has been aggressive and threatening towards family constantly requesting money on day of evaluation he requested money from mother when she refused , he overdosed on depakote pt on evaluation reported depressed mood, guarded , minimizing the suicidal attempt reported using depakote to get high Psychiatric History (includes Medical, Family, Personal Hx): for depression Consultations:: List each consultation separately and include: 1. Reason for request. 2. Findings. 3. Follow-up Summary of Hospital Course include:: 1. Description of specific treatment plan utilized for patients during their course of treatmen. 2. Summarize the time- course for resolution of acute symptoms and/or regressed behaviors. 3. Describe issues identified and worked on during hospitalization. 4. Describe medication utilized. 5. Describe medical problems identified and treated. 6. Reassessment of suicide risk Summary of Hospital Course: pt on admission was started on abilify, it was uptitrated to 10mg daily pt was compliant with medications, no reported side effects Motivational, group and supportive therapy provided pt on discharge mental status was stable,denied suicidal or hiomocidal ideations , denied perceptual disturbances follow up arranged by social security assessor at [facility] outpatient - Diagnosis (1) Bipolar disorder Current Visit: No Status: Acute Priority: High - Final Diagnosis (DSM 5) Condition upon Discharge: GOOD DSM 5: bipolar I disorder mixed severe without psychotic features Cannabis use disorder Disposition: HOME/ ROUTINE Follow-up Treatment Plan: abilify 5mg bid, start abilify maintenna for better complianceneurontin 100mg tid group and supportive therapy referral to outpatient [facility] on discharge Prescriptions/Medication Reconciliation: ARIPiprazole [Abilify] 5 mg PO BID 30 Days #60 tab Gabapentin [Neurontin] 100 mg PO TID 30 Days #90 cap - Antipsychotic Medications Pt discharged on 2 or more routine antipsychotic medications: No
== END 2017-05-06 11:31 | disposition home or self-care (01) | DRG 430 ==
LOC: H.PSYCH 22:56
PROVIDERS: ADMIT Psychiatry & Neurology Psychiatry; ATTEND Psychiatry & Neurology Psychiatry
PROC: GZHZZZZ Group Psychotherapy (ICD-10-PCS; principal; 2017-04-30)
PROC: HZ59ZZZ Individual Psychotherapy for Substance Abuse Treatment, Supportive (ICD-10-PCS; 2017-04-30)
DX: F31.63 Bipolar disorder, current episode mixed, severe, without psychotic features (principal); Z91.14 Patient's other noncompliance with medication regimen; F12.90 Cannabis use, unspecified, uncomplicated; Z91.19 Patient's noncompliance with other medical treatment and regimen